=== PATIENT | female | born 1970 | race Caucasian/White ===

== ENCOUNTER 2017-06-10 18:10 | Emergency (ER) | payer SELFPAY ==
--- NOTE | ~2017-06-10 | CT4 ---
[facility] A Service of [facility] RADIOLOGY TEXT RESULTS PATIENT: TEODORO VALENCIA LOCATION: SED : 70 UNIT #: [id number] AGE: [address]: KHADIJAH YOUNGBLOOD SEX: F ORDER DR: [id number] [place] [id number] MR#: [id number] Acc #: [id number] NAME: TEODORO VALENCIA : 1970 SEX: F STUDY DATE/TIME: 06/10/2017 19:42 UNIT: SED ROOM: STUDY DESCRIPTION: CT Abd and Pelv Wo Cont Attending Physician: Khadijah Youngblood Aprn Ordering Physician: Khadijah Youngblood Aprn MEDICAL IMAGING REPORT This report is preliminary unless electronic signature is present. EXAM Abdomen and pelvis CT no contrast, 06/10/2017. INDICATION 46-year-old female with flank pain on the left on the right. Low back pain 2 hours prior to arrival. Hysterectomy. TECHNIQUE Noncontrast abdomen and pelvis CT was performed. This CT exam was performed with one or more of the following radiation dose reduction techniques: automatic exposure control, adjustment of mA and/or kV according to patient size, and iterative reconstruction. COMPARISON We have no comparison studies. FINDINGS CT ABDOMEN: Exam markedly degraded by noncontrast technique. Included lung bases are clear. Aorta demonstrates no aneurysm. Spleen and adrenal glands are unremarkable. Pancreas normal. Gallbladder and liver unremarkable. Kidneys demonstrate no hydronephrosis on either side. There is a 2 mm nonobstructing stone in the left kidney. There are calcifications in close proximity to the distal ureter on the right favored to be vascular but it would be impossible to fully exclude a distal ureteral stone on the right. CT PELVIS: Bladder unremarkable. Probable vascular calcifications in the pelvis. Uterus surgically absent. No drainable fluid collection in the pelvis or adnexal mass. Bowel demonstrates no obstruction or focal inflammatory change. Appendix not identified and felt to be surgically absent, as there appear to be postop changes at the base of the cecum. [facility] A Service of [facility] RADIOLOGY TEXT RESULTS PATIENT: TEODORO VALENCIA [place] [facility] [place] 70 UNIT #: [id number] AGE: [address]: KHADIJAH YOUNGBLOOD SEX: F ORDER DR: Inguinal canals unremarkable. No suspicious bone lesion. IMPRESSION 1. No clearly acute process identified. No bowel obstruction, drainable fluid collection, or focal area of inflammatory change. 2. Surgical absence of the uterus and likely also the appendix. 3. Nonobstructing 2 mm stone left kidney. 4. Probable vascular calcifications in the pelvis, although it would be impossible to fully exclude a distal ureteral stone particularly on the right. Correlate with urinalysis. Dictated by... Victoriano Casas M.D. THIS IS AN ELECTRONICALLY VERIFIED REPORT Victoriano Casas M.D. at 06/11/2017 8:30 AM Ashlee TD: 06/11/2017 01:09 JOB #: [id number] MEDICAL IMAGING REPORT Page 1 of 1
[2017-06-10 19:08] LABS: BASOPHIL# 0.1 X10e3 (0-0.3); BASOPHIL% 0.7 % (0-2.5); EOSINOPHIL# 0.1 X10e3 (0-0.7); EOSINOPHIL% 1.2 % (0.0-7.0); HEMATOCRIT 42.7 % (35.0-45.0); HEMOGLOBIN 14.7 gm/dL (12.0-16.0); LYMPHOCYTE# 2.4 X10e3 (1.0-3.5); LYMPHOCYTE% 23.3 % (17.0-45.0); MEAN CELL VOLUME 94.6 FL (83-96); MEAN CORPUSCULAR HEMOGLOBIN 32.6 PG (28-34); MEAN CORPUSCULAR HGB CONC 34.5 g/dL (30-36); MEAN PLATELET VOLUME 8.1 FL (6.5-11.5); MONOCYTE# 0.7 X10e3 (0-1.0); MONOCYTE% 6.6 % (3.0-12.0); NEUTROPHIL# 6.9 X10e3 (1.5-7.1); NEUTROPHIL% 68.2 % (40-75); PLATELET COUNT 297 X10e3 (140-420); RED BLOOD COUNT 4.52 X10e (3.90-5.30); WHITE BLOOD COUNT 10.1 X10e3 (4.0-10.5)
[2017-06-10 19:10] LABS: DIFF IND NO
[2017-06-10 19:10] LABS: URINE SOURCE CLEAN CATCH
[2017-06-10 19:13] LABS: URINE APPEARANCE SL CLOUDY; URINE BILIRUBIN NEG (NEG); URINE BLOOD NEG (NEG); URINE COLOR RED; URINE GLUCOSE 100 MG/DL (NORM); URINE KETONE NEG (NEG); URINE LEUKOCYTE ESTERASE NEG (NEG); URINE NITRATE POS (NEG); URINE PROTEIN NEG (NEG)
[2017-06-10 19:15] LABS: MICRO INDICATED? YES
[2017-06-10 19:20] LABS: CULTURE INDICATED? YES; URINE BACTERIA 2+ (NEG); URINE MUCUS PRESENT; URINE SQUAMOUS EPITHELIAL CELL MODERATE /[HPF]
[2017-06-10 19:21] LABS: ALBUMIN SERUM 4.2 g/dL (3.5-5.0); BILIRUBIN, DIRECT 0.1 mg/dL (0.0-0.2); BILIRUBIN,INDIRECT 0.5 mg/dL (0.0-0.9); BILIRUBIN,TOTAL 0.6 mg/dL (0.2-2.0); BUN/CREATININE RATIO 17.5; CALCIUM SERUM 9.3 mg/dL (8.4-10.2); CREATININE SERUM 0.8 mg/dL (0.6-1.4); GLOM FILT RATE Estimated 88.5 mL/min (>60); POTASSIUM 3.8 mmol/L (3.5-5.1); PROTEIN TOTAL SERUM 7.1 g/dL (6.0-8.3)
== END 2017-06-10 21:00 | disposition home or self-care (01) ==
LOC: SED 18:10
PROVIDERS: Nurse Practitioner Family
DX: N20.1 Calculus of ureter (principal); Z90.710 Acquired absence of both cervix and uterus; Z90.49 Acquired absence of other specified parts of digestive tract; Z87.891 Personal history of nicotine dependence
CPT/HCPCS: 36415; 74176; 80048; 80076; 81003; 83690; 85025; 87086; 96361; 96374; 96375; 99284; J1170; J1885; J2270; J2405